=== PATIENT | female | born 1965 | race Caucasian/White ===

== ENCOUNTER 2017-12-09 05:59 | Emergency (ER) | payer OTHER ==
[2017-12-09] MEDS: predniSONE 20 MG TAB PO (07:38)
[2017-12-09] MEDS: LevoFLOXacin 750 MG TABLET PO (07:38)
== END 2017-12-09 07:42 | disposition home or self-care (01) ==
LOC: M ED 05:59
DX: L08.9 Local infection of the skin and subcutaneous tissue, unspecified (principal); I10 Essential (primary) hypertension; Z72.0 Tobacco use
CPT/HCPCS: 99283